=== PATIENT | male | born 1980 | race Two or more races ===

== ENCOUNTER 2022-04-29 17:06 | Emergency (ER) | payer OTHER | END 2022-04-29 20:01 | disposition home or self-care (01) | LOC: MW.ED 17:06 | DX: S63.501A Unspecified sprain of right wrist, initial encounter (principal); Z79.899 Other long term (current) drug therapy; Z79.84 Long term (current) use of oral hypoglycemic drugs; W18.30XA Fall on same level, unspecified, initial encounter; X50.1XXA Overexertion from prolonged static or awkward postures, initial encounter | CPT/HCPCS: 73110-26-RT; 73110-RT; 99282; 99283 ==